=== PATIENT | male | born 1970 | race African-American/Black ===

== ENCOUNTER 2020-03-28 20:13 | Emergency (ER) | payer OTHER ==
[~2020-03-28] VITALS: Ht 190.5 cm; Wt 123.0 kg
[2020-03-28] MEDS ORDERED: MORPHINE SULFATE 10 MG/ML CPJ IM ONE (21:00)
[2020-03-29] MEDS ORDERED: MORPHINE SULFATE 10 MG/ML CPJ IM ONE (00:15)
[2020-03-29] MEDS ORDERED: MORPHINE SULFATE 10 MG/ML CPJ IV ONE (01:00)
[2020-03-29 01:48] VITALS: BP 161/98
== END 2020-03-29 03:35 | disposition short-term general hospital (02) ==
LOC: EDBD 20:13 → ER 20:13
DX: S32.008A Other fracture of unspecified lumbar vertebra, initial encounter for closed fracture (principal); S92.811A Other fracture of right foot, initial encounter for closed fracture; W18.39XA Other fall on same level, initial encounter; Y93.89 Activity, other specified; Y92.89 Other specified places as the place of occurrence of the external cause; Y99.8 Other external cause status
CPT/HCPCS: 72131; 73630; 96372; 96374; 99285; J2270